=== PATIENT | female | born 1990 ===

== ENCOUNTER 2021-03-01 21:15 | Inpatient (IN) | payer MEDICAID ==
[~2021-03-01] VITALS: Ht 162.7 cm; Wt 87.3 kg
[2021-03-01 21:40] VITALS: BP 136/92; PULSE 100; TEMP 97.9
[2021-03-01] MEDS ORDERED: PRENATAL MVI PO (22:16)
[2021-03-01 22:17] LABS: BASO # 0.1 K/mm3 (0.0-0.2); BASO % 0.4 % (0.0-2.0); EOS % 0.1 % (0.0-4.0); GRAN # 13.8 K/mm3 (1.4-6.5); GRAN % 80.6 % (42.2-75.2); HEMOGLOBIN 13.1 g/dl (12.5-16.0); LYMPH # 2.2 K/mm3 (1.2-3.4); LYMPH % 12.6 % (20.0-51.0); MEAN CELL VOLUME 85 fl (80.0-100.0); MEAN CORPUSCULAR HEMOGLOBIN 31 pg (27-31); MEAN CORPUSCULAR HGB CONC 36 g/dl (33.0-37.0); MEAN PLATELET VOLUME 11.2 fl (7.4-10.4); MONO # 0.9 K/mm3 (0.1-0.6); MONO % 5.2 % (1.7-9.3); PLATELET COUNT 292 K/mm3 (130-400); RED BLOOD COUNT 4.27 M/mm3 (4.10-5.30); REDCELL DISTRIBUTION WIDTH-CV 14.3 % (11.5-14.5)
[2021-03-01 22:19] LABS: HEMATOCRIT 36.3 % (37.0-47.0)
[2021-03-01 22:30] VITALS: BP 133/86; PULSE 86
[2021-03-01 23:50] VITALS: BP 94/51; PULSE 92
[2021-03-01 23:55] VITALS: BP 84/61; PULSE 91
[2021-03-02] VITALS (17 sets, daily range): BP systolic 70–154; BP diastolic 50–96; PULSE 76–124; TEMP 97.6–99.6
--- NOTE | 2021-03-02 02:41 | NUR ---
30 YO AT 37.6 WEEKS GESTATION TO LDR2 WITH C/O CTXS THAT STARTED ABOUT 0500 THIS AM AND HAVE BECOME STRONGER AND CLOSER TOGETHER, CTXS ARE NOW Q 2-3 MIN PT DENIES LEAKING ANY FLUID OR VAGINAL BLEEDING AND REPORTS GOOD ACTIVITY. PT REPORTS THAT HER CERVIX WAS CHECKED LAST SATURDAY BY DR HATCH AND SHE WAS CLOSED
--- NOTE | 2021-03-02 02:59 | NUR ---
IV STARTED TO LEFT HAND 20G BY Lev HERNADEZ RN AT 2150. LAB DRAWN WITH IV START. LR STARTED TO INFUSE TO GRAVITY
--- NOTE | 2021-03-02 03:03 | NUR ---
2204 - ROLES TO BEDSIDE, SPEAKS WITH PT AND ABOUT DELIVERY 2207 -PT PREFERS TO PROCEED WITH . C/S CALLED. TRACTOR DRIVER NOTIFIED
--- NOTE | 2021-03-02 03:05 | NUR ---
EFM OFF. PT AMBULATES TO OR WITH RN AND
--- NOTE | 2021-03-02 03:29 | NUR ---
TO ROOM 211 PER BED, AWAKE AND ALERT, DENIES PAIN, UNABLE TO MOVE LOWER EXTREMETIES. VALLADARES WITH CLEAR YELLOW URINE, SCD'S IN PLACE, LOWER ABD DSG D/I. AT BEDSIDE
--- NOTE | 2021-03-02 03:32 | NUR ---
NURSING BABY, TAKING SIPS OF ICE WATER WITHOUT NAUSEA
--- NOTE | 2021-03-02 03:34 | NUR ---
CONTINUES TO NURSE BABY, TAKING CRACKERS AND JUICE WITHOUT NAUSEA
--- NOTE | 2021-03-02 03:35 | NUR ---
HAS FINISHED NURSING BABY, BABY TO NURSERY FOR BATH. EATING SANDWICH AND TOLERATING WELL. DENIES ANY NAUSEA. REMAINS AT BEDSIDE
--- NOTE | 2021-03-02 03:37 | NUR ---
PADS CHANGED AND [place] CARE PROVIDED, STILL UNABLE TO MOVE LOWER EXTREMETIES MUCH. SCD'S REMAIN IN PLACE, VALLADARES WITH CLEAR YELLOW URINE, IV FLUIDS CONTINUE TO INFUSE PER GRAVITY, SITE WITHOUT REDNESS OR EDEMA
--- NOTE | 2021-03-02 04:30 | NUR ---
IV FLUIDS INFUSED, CONVERTED TO SALINE LOCK
[2021-03-02] MEDS ORDERED: MOTRIN 800800 MG/TAB PO (05:56)
[2021-03-02] MEDS ORDERED: PERCOCET 325 MG1 TA2 PO (05:56)
--- NOTE | 2021-03-02 09:36 | NUR ---
Initial visit; Parents thanked Accounting Methods Analyst for offering congratulations and God's blessings for the of their son. Accounting Methods Analyst thanked family for choosing [facility].
[2021-03-03 07:30] VITALS: BP 131/74; PULSE 84; TEMP 97.3
[2021-03-03 16:30] VITALS: BP 135/79; PULSE 100; TEMP 98
[2021-03-03 19:00] VITALS: BP 136/87; PULSE 104; TEMP 98.9
[2021-03-04 07:46] VITALS: BP 119/78; PULSE 89; TEMP 97.6
--- NOTE | 2021-03-06 16:51 | NUR ---
Clinical documentation of bith faxed to the patient's insurance.
== END 2021-03-04 15:12 | disposition home or self-care (01) | DRG 788 ==
LOC: LDRO 21:15 → LDR 21:15 → LDRO 22:00 → LDR 22:05 → OB 22:05
PROVIDERS: Obstetrics & Gynecology; ADMIT Obstetrics & Gynecology
PROC: 10D00Z1 Extraction of Products of Conception, Low, Open Approach (ICD-10-PCS; principal; 2021-03-02)
DX: O34.211 Maternal care for low transverse scar from previous cesarean delivery (principal); O99.02 Anemia complicating childbirth; D57.3 Sickle-cell trait; O69.81X0 Labor and delivery complicated by cord around neck, without compression, not applicable or unspecified; O99.62 Diseases of the digestive system complicating childbirth; K21.9 Gastro-esophageal reflux disease without esophagitis; O99.344 Other mental disorders complicating childbirth; F41.9 Anxiety disorder, unspecified; O76 Abnormality in fetal heart rate and rhythm complicating labor and delivery; Z3A.37 37 weeks gestation of pregnancy; Z37.0 Single live birth; Z23 Encounter for immunization
CPT/HCPCS: J0171; J0690; J1100; J1885; J2370; J2590; J7120